=== PATIENT | male | born 2000 | race Caucasian/White ===

== ENCOUNTER 2025-08-25 06:47 | Emergency (ER) | payer OTHER, SELFPAY ==
--- OUTSIDE RECORDS SUMMARY | 2015-06-06 01:40 | XMS_ITS | Continuity of Care Document ---
Author Organization [facility] Address [address] [place], [place] [address] Phone Care Team Providers Care Manager Critical Care Unit Name Role Phone Unavailable Unavailable Unavailable Medications Medication Instructions Dosage Effective Dates (start - stop) Status Comments Guaifenesin AC 10 mg-100 mg/5 mL oral liquid take 5 milliliter by oral route every 12 hours as needed 5 milliliter - Active benzonatate 100 mg capsule take 1 capsule by oral route 3 times every day as needed for cough 100 MG - Active albuterol sulfate HFA 90 mcg/actuation aerosol inhaler inhale 2 puff by inhalation route every 4 - 6 hours as needed 180 MCG - Active prednisone 10 mg tablet take 1 tablet by oral route 2 times every day 10 MG - Active promethazine-DM 6.25 mg-15 mg/5 mL syrup take 5 milliliter by oral route every 6 hours as needed 5.00 milliliter - Active clarithromycin 500 mg tablet take 1 tablet by oral route every 12 hours for 10 days 500 MG - No Longer Active Procedures Procedure Date Offic/outpt E&m Estab Mod-hi 2 15 Services provided in an urgent care [facility] Agt-immunassay Dir Obs; Strep 5 Offic/outpt E&m Estab Mod-hi 2 15 Services provided in an urgent care [facility] Rad Exam Chest 2 Views Front & 15 Offic/outpt E&m New Mod-hi 45 5 Services provided in an urgent care [facility] Advance Directives Directive Yes / No Effective Date File Name No Information Encounters Encounter Description Practice Location Reason(s) For Visit Diagnoses Date Provider Providers Copied on Encounter Offic/outpt E&m [address], [address], [place], [place], [id number], [place] tel:[phone] [facility] cough (chief complaint) Pneumonia May- 5 No Information Offic/outpt E&m [facility] 2 [facility], [address], [place], [place], [id number], [place] tel:[phone] [facility] cough (chief complaint) fever (chief complaint) sore throat (chief complaint) CoughPharyngiti s, AcutePneumonia May- 5 No Information Offic/outpt E&m [address], [address], [place], [place], [id number], [place] tel:[phone] [facility] [place] cough (chief complaint) Upper Respiratory Infection, Acute 5 No Information Family History Family Member Type Diagnosis Age At Onset No Information Payers Payer name Insurance type Covered democrat ID Authoriza tion(s) No Information Social History Type Description Quantity Date Captured Comments Alcohol Use Details No Caffeine Use Details Unknown Tobacco Use Status No Information Smoking Status No Information Sex Male Vital Signs Date / Time: Height Weight BMI Pulse Rate Blood Pressure Temperature Respiratory Rate Body Surface Area Head Circumference Head Circ. Percentile Wt./Raphael. Percentile BMI percentile Pulse Ox Inhaled Ox 8:47 AM 92.533 kg (204.00 lbs) 73 /min 135/86 mm[Hg] 98.20 F 14 /min 97 % Chief Complaint And Reason For Visit From encounter dated '06/06/2015 07:40'. cough (chief complaint) Reason For Referral Reason For Referral No Information Plan Of Treatment Date Type Action Status Referral Ordered: Rad Exam Chest 2 Views Front & ordered History Of Present Illness Encounter Date Complaint History Of Prese nt Illness No Information Functional Status Date Functional Assessmen t No Information Instructions Date Instruction Additional Infor mation No Information Assessments Type Assessment Date No Information Mental Status Date Cognitive Assessment Orientation - Wana ed to time, place, person, situation. Patient Care Teams Name Effective Dates (start - stop) Status Members No Information
[2025-08-25 06:50] VITALS: BP 125/82; PULSE 77; RESP 14; TEMP 36.6; O2SAT 98; BMI 34.3
--- NOTE | 2025-08-25 07:07 | ED.GENADULT ---
HPI - General Adult General Time Seen by Provider: 07:07 Date Seen: 08/25/25 Chief complaint: Ear/Nose/Throat Problem Stated complaint: ear pain Time Seen by Provider: 08/25/25 06:54 Source: patient and RN notes reviewed Mode of arrival: ambulatory Limitations: no limitations History of Present Illness HPI narrative: This 24-year-old male is coming in with right ear pain, decreased hearing. He had some respiratory symptoms and a sore throat proceeding his ears symptoms. Thought he was getting better. Did try some NyQuil. Last night when he went to bed he felt fluid building up in his right ear. He notes there was a bubbling type pain in that ear right now, can not hear out of the right ear. He felt like his right cheek felt swollen but feels better now. He told nursing staff that he had sharp pain in that she but he states it is not bothering him now, was worse. He did take some ibuprofen. He has not noted any fevers or chills. Cough is not been that significant. He is in [employer], is supposed to do a physical fitness test tomorrow. He does admit that he feels a little off balance with his ear bothering him. He has no known drug allergies. Related Data Home Medications ?Medication ?Instructions ?Recorded ?Confirmed Fish Oil 08/25/25 multivitamin 08/25/25 Allergies Allergy/AdvReac Type Severity Reaction Status Date / Time No Known Drug Allergies Allergy Verified 08/25/25 06:57 Review of Systems Narrative: As per HPI. [facility] Social History Smoking Status: Never smoker How often do you have a drink containing alcohol: monthly or less AUDIT-C Alcohol total score: 1 Non-prescribed substance use: denies use service: Yes Exam Const: Vital Signs, click to edit/add: Vital Signs - 24 hr 08/25/25 06:50 Temperature 97.8 F Pulse Rate [Right Pulse Oximeter] 77 Respiratory Rate 14 Blood Pressure [Le ft Upper Arm] 125/82 Pulse Oximetry 98 Oxygen Delivery Me thod Room Air This 24-year-old male is alert, interactive, no apparent distress. He is seen in exam room for. Pupils equal round reactive, sclera clear, extraocular muscles intact. Symmetrical facial function. Speech is normal. Oropharynx with normal mucosa, no exudates or erythema. Tonsils are visible, right is about 1+, left is just a little bit smaller but both are visible, no significant erythema or exudates. He has an excellent oral airway. Neck thick but supple, no adenopathy. Right tympanic membrane is retracted, erythematous, no drainage in the canal. He has some scarring inferiorly along the left TM, some retraction of that tympanic membrane but still translucent, no discoloration. Lungs are clear, good air entry, no wheezing or crackles, no tachypnea, no accessory muscle use. CV regular rate and rhythm, no murmur. Documenting provider has reviewed patient's vital signs: yes Course Course ED Course: This 24-year-old male has obvious right ear infection on exam. He would prefer his medications from [facility]. Will give of amoxicillin. Did agree to provide him a note stating has ear infection for [employer], may affect his ability to perform some of his functions. He would still like to go. Vital Signs Vital signs: Initial Vital Signs Temperature 97.8 F 08/25/25 06:50 Temperature Source Temporal Artery Scan 08/25/25 06:50 Pulse Rate 77 08/25/25 06:50 Pulse Rhythm Regular 08/25/25 06:50 Respiratory Rate 14 08/25/25 06:50 Blood Pressure 125/82 08/25/25 06:50 Blood Pressure Mean 96 08/25/25 06:50 Blood Pressure Position Sitting 08/25/25 06:50 Pulse Oximetry 98 08/25/25 06:50 Oxygen Delivery Method Room Air 08/25/25 06:50 Vital Signs Temperature 97.8 F 08/25/25 06:50 Pulse Rate 77 08/25/25 06:50 Respiratory Rate 14 08/25/25 06:50 Blood Pressure 125/82 08/25/25 06:50 Pulse Oximetry 98 08/25/25 06:50 Oxygen Delivery Method Room Air 08/25/25 06:50 Temperature 97.8 F 08/25/25 06:50 Pulse Rate 77 08/25/25 06:50 Respiratory Rate 14 08/25/25 06:50 Blood Pressure 125/82 08/25/25 06:50 Pulse Oximetry 98 08/25/25 06:50 Oxygen Delivery Method Room Air 08/25/25 06:50 Discharge Plan Discharge Clinical Impression: Otitis media Qualifiers: Otitis media type: unspecified Chronicity: acute Qualified Code(s): H66.90 - Otitis media, unspecified, unspecified ear Patient Disposition: Home, Self-Care Condition: Stable Instructions: Ear Infection (ED) Additional Instructions: Start amoxicillin 500 mg, take 1 pill 3 times a day for 10 days. May need to use Tylenol and/or ibuprofen per bottle directions for pain/discomfort until antibiotics kick in for the ear infection. If you are not improving over the next week, feel you are worsening at any point, please seek re-evaluation. Activity Level: Activity as Tolerated Prescriptions: No Action Fish Oil multivitamin Follow Up/Referrals: Provider,Not a Local [Primary Care Provider, Family Practice] Stand Alone Forms: [employer] Info Instructions
--- OUTSIDE RECORDS SUMMARY | 2025-08-25 07:34 | XMS_ITS | Clinical Summary ---
Author Organization [facility] Address [address] [place] [id number] Care Team Providers Care Dust Collector Attendant Name Role Phone No Ref-Primary, Physician Primary Care Provider Maine Dumas PA-C Unavailable [phone] Allergies No known active allergies Medications fish oil-omega-3 fatty acids 500 MG capsule Active Social History Tobacco Use Types Packs/Day Years Used Date Smoking Tobacco: Never Assessed PHQ-2 Answer Date Recorded PHQ-2 Score 0 03/03/2024 Adolescent Education Answer Date Record ed Getting School Help Needed Not on file 02/24 Sex and Gender Information Value Date Recorded Sex Assigned at Not on file Legal Sex Male 4:24 PM CDT Gender Identity Not on file Sexual Orientation Not on file Last Filed Vital Signs Vital Sign Reading Time Taken Comments Blood Pressure 129/86 03/03/2024 7:20 AM CDT Pulse 54 03/03/2024 7:20 AM CDT Temperature - - Respiratory Rate - - Oxygen Saturation 100% 03/03/2024 7:20 AM CDT Inhaled Oxygen Concentration - - Weight 97.8 kg (215 lb 8 oz) 03/03/2024 7:20 AM CDT Height - - Body Mass Index - - Plan of Treatment Health Maintenance Due Date Last Done Comments ADVANCE CARE PLANNING 1998 ANNUAL REVIEW OF HM ORDERS 1998 ASTHMA ACTION PLAN 1998 YEARLY PREVENTIVE VISIT 2001 HIV SCREENING 2013 HPV VACCINE (1 - Male 3-dose series) 2013 HEPATITIS C SCREENING 2016 HEPATITIS B VACCINE (1 of 3 - 19+ 3-dose series) 2017 PNEUMOCOCCAL VACCINE: PEDIATRICS (0 to 5 YEARS) AND AT-RISK PATIENTS (6 to 49 YEARS) (1 of 2 - PCV) 2017 DTAP/TDAP/TD VACCINE (1 - Tdap) 12/07/2023 ASTHMA CONTROL TEST 09/02/2024 03/03/2024 PHQ-2 (once per calendar year) 2024 03/03/2024 COVID-19 VACCINE (3 - 2024-2 6 season) 2025 04/16/2021, 03/26/2021 INFLUENZA VACCINE (#1) 2025 ZOSTER VACCINE (1 of 2) 2048 MENINGITIS VACCINE Aged Out No longer eligible based on patient's age to complete this topic [place] [address] [place] [address] WITH [employer] [facility] WITH [employer] Care Teams Dust Collector Attendant Relationship Specialty Start Date End Date No Ref-Primary, Physician PCP - General 03/03/24 Maine Dumas PA-C [id number] [place] [address] Assigned Cancer Care Provider 03/12/24
== END 2025-08-25 07:51 | disposition home or self-care (01) ==
PROVIDERS: Emergency Provider Family Medicine
DX: H66.91 Otitis media, unspecified, right ear (principal); Z02.79 Encounter for issue of other medical certificate
CPT/HCPCS: 99283